=== PATIENT | female | born 1950 | race Caucasian/White ===

== ENCOUNTER 2016-08-14 14:34 | Inpatient (IN) | payer OTHER ==
[2016-08-14] VITALS (8 sets, daily range): BP systolic 175–212; BP diastolic 87–119; PULSE 71–94; RESP 17–20; TEMP 97.5–98.2; O2SAT 92–100
[~2016-08-14] VITALS: Ht 157.5 cm; Wt 88.7 kg
[2016-08-14 14:58] LABS: AUTOMATED NEUTROPHIL # 4.8 TH/MM3 (1.8-7.7); BASOPHIL # 0.1 TH/MM3 (0-0.2); BASOPHIL % 1.8 % (0.0-2.0); EOSINOPHIL # 0.2 TH/MM3 (0-0.4); EOSINOPHIL % 2.2 % (0.0-4.0); HEMATOCRIT 42.7 % (35.0-46.0); HEMO FLAGS DIFF FINAL; LYMPH % 23.1 % (9.0-44.0); LYMPHOCYTE # 1.7 TH/MM3 (1.0-4.8); MEAN CELL VOLUME 84.7 FL (80.0-100.0); MEAN CORPUSCULAR HEMOGLOBIN 27.5 PG (27.0-34.0); MEAN CORPUSCULAR HGB CONC 32.5 % (32.0-36.0); MONO % 6.8 % (0.0-8.0); NEUT % 66.1 % (16.0-70.0); PLATELET COUNT 176 TH/MM3 (150-450); RED BLOOD COUNT 5.04 MIL/MM3 (4.00-5.30); RED CELL DISTRIBUTION WIDTH 13.8 % (11.6-17.2); WHITE BLOOD COUNT 7.3 TH/MM3 (4.0-11.0)
[2016-08-14] MEDS ORDERED: LOSA25TA PO (15:05)
[2016-08-14] MEDS ORDERED: NAPR250T PO (15:05)
[2016-08-14] MEDS ORDERED: VERA40TA PO (15:05)
--- NOTE | 2016-08-14 15:05 | RADHPO ---
EXAM DATE/TIME: 08/14/2016 14:54 [facility] COMPARISON: No previous studies available for comparison. INDICATIONS : CVA, slurred speech MEDICAL HISTORY : None. SURGICAL HISTORY : None. ENCOUNTER: Initial ACUITY: 1 day PAIN SCORE: 0/10 LOCATION: Bilateral chest FINDINGS: Cardiomegaly. Clear lungs. Osseous structures are intact. CONCLUSION: No acute disease. Charles Salcido MD on August 14, 2016 at 15:03 Board Certified Radiologist. This report was verified electronically.
[2016-08-14 15:07] LABS: CHLORIDE 107 MEQ/L (98-107); POTASSIUM 3.8 MEQ/L (3.5-5.1); SODIUM (NA) 142 MEQ/L (136-145)
--- NOTE | 2016-08-14 15:07 | PD ---
HPI . Difficulty speaking and bilateral lower extremity weakness Chief Complaint: Neuro Symptoms/ Deficits Time Seen by Provider: 14:39 Travel History International Travel<30 days: No Contact w/Intl Traveler<30days: No History of Present Illness HPI Patient presents with a greater than 24-hour history of pressured speech and bilateral lower extremity weakness. She and her were on a car trip here from [place] when her symptoms began. They were traveling here for vacation. The states that her symptoms have waxed and waned over the course of the last 24 hours. They have never resolved. He states that she was speaking mainly in one word phrases and seemed to have difficulty getting her words out. He states that she seemed to be comprehending things well. He further states that he has had to physically assist her in getting around because of the weakness in her legs. She has not fallen. The patient denies any headache or blurred vision. She denies any vomiting. She denies chest pain or shortness of breath. She denies any previous similar history. She and her state that there has been no alcohol or drug use. PENDING SALE TO [facility] Social History Tobacco Use: No Allergies-Medications (Allergen,Severity, Reaction): Coded Allergies: No Known Allergies (Unverified , 08/14/16) Reported Meds & Prescriptions Reported Meds & Active Scripts Active Reported Naproxen 250 Mg Tab Unknown Dose PO DIRECTED Losartan (Losartan Potassium) 25 Mg Tab Unknown Dose PO HS Verapamil (Verapamil HCl) 40 Mg Tab Unknown Dose PO HS Review of Systems Except as stated in HPI: all other systems reviewed are Neg General / Constitutional: No: Fever, Chills Eyes: No: Diploplia, Blurred Vision HENT: No: Headaches, Vertigo Cardiovascular: No: Chest Pain or Discomfort Respiratory: No: Cough, Shortness of Breath Gastrointestinal: No: Nausea, Vomiting Musculoskeletal: No: Myalgias, Arthralgias Neurologic: Positive: Weakness, No: Syncope, Headache, Slurred Speech (speech is pressured and deliberate but not slurred) Psychiatric: Positive: Anxiety Physical Exam Narrative GENERAL: Bright and appearing woman who is in no acute distress. SKIN: Warm and dry. HEAD: Atraumatic. Normocephalic. EYES: Pupils equal and round. Extraocular movements are intact. ENT: No nasal bleeding or discharge. Mucous membranes pink and moist. NECK: Trachea midline. Neck is supple. CARDIOVASCULAR: Regular rate and rhythm. Heart sounds are normal. RESPIRATORY: No accessory muscle use. Lungs are clear with full air movement throughout. GASTROINTESTINAL: Abdomen soft, non-tender, nondistended. MUSCULOSKELETAL: No obvious deformities. No edema. NEUROLOGICAL: Awake and alert. She is able to hold her eyes shut, protrude her tongue, smile and blow her cheeks out with no weakness. She has full and equal strength in all muscle groups in her extremities including her legs. Babinski' s are downgoing. Her speech is a little slowed and deliberate. It is not slurred. PSYCHIATRIC: Anxious. Data Data Last Documented VS Vital Signs Date Time Temp Pulse Resp B/P Pulse Ox O2 Delivery O2 Flow Rate FiO2 08/14/16 14:53 98 Room Air 08/14/16 14:53 97.9 88 17 175/103 Orders Electrocardiogram (08/14/16 14:39) Prothrombin Time / Inr (Pt) (08/14/16 14:39) Act Partial Throm Time (Ptt) (08/14/16 14:39) Complete Blood Count With Diff (08/14/16 14:39) Comprehensive Metabolic Panel (08/14/16 14:39) Creatine Kinase (Cpk) (08/14/16 14:39) Troponin I (08/14/16 14:39) Ct Brain W/O Iv Contrast(Rout) (08/14/16 14:39) Chest, Single Ap (08/14/16 14:39) Ecg Monitoring (08/14/16 14:39) Iv Access Insert/Monitor (08/14/16 14:39) Oximetry (08/14/16 14:39) Urinary Catheter Management IAIN.Q8H (08/14/16 14:49) Urinalysis - C+S If Indicated (08/14/16 14:49) Drug Screen, Random Urine (08/14/16 14:49) Labs Laboratory Tests Test 08/14/16 14:50 White Blood Count 7.3 TH/MM3 Red Blood Count 5.04 MIL/MM3 Hemoglobin 13.9 GM/DL Hematocrit 42.7 % Mean Corpuscular Volume 84.7 FL Mean Corpuscular Hemoglobin 27.5 PG Mean Corpuscular Hemoglobin 32.5 % Concent Red Cell Distribution Width 13.8 % Platelet Count 176 TH/MM3 Mean Platelet Volume 9.6 FL Neutrophils (%) (Auto) 66.1 % Lymphocytes (%) (Auto) 23.1 % Monocytes (%) (Auto) 6.8 % Eosinophils (%) (Auto) 2.2 % Basophils (%) (Auto) 1.8 % Neutrophils # (Auto) 4.8 TH/MM3 Lymphocytes # (Auto) 1.7 TH/MM3 Monocytes # (Auto) 0.5 TH/MM3 Eosinophils # (Auto) 0.2 TH/MM3 Basophils # (Auto) 0.1 TH/MM3 CBC Comment DIFF FINAL Differential Comment Sodium Level 142 MEQ/L Potassium Level 3.8 MEQ/L Chloride Level 107 MEQ/L Carbon Dioxide Level 27.0 MEQ/L Anion Gap 8 MEQ/L Blood Urea Nitrogen 18 MG/DL Creatinine 0.85 MG/DL Estimat Glomerular Filtration 67 ML/MIN Rate Random Glucose 108 MG/DL Calcium Level 8.6 MG/DL Total Bilirubin 0.5 MG/DL Aspartate Amino Transf 14 U/L (AST/SGOT) Alanine Aminotransferase 29 U/L (ALT/SGPT) Total Protein 7.6 GM/DL Albumin 3.7 GM/DL [facility] Medical Decision Making Medical Screen Exam Complete: Yes Emergency Medical Condition: Yes Interpretation(s) EKG shows a sinus rhythm with a rate of 77. Inverted T waves in aVL. Otherwise , no acute ischemic changes. Differential Diagnosis Differential diagnosis of weakness includes but is not limited to infection, CVA , electrolyte disturbance, renal failure, hypoglycemia, UTI, ACS, acute blood loss Narrative Course Patient presents with a greater than 24-hour history bilaterally weak legs and difficulty speaking. Other than the speech difficulties, her neuro exam is intact. Last Impressions Chest X-Ray 08/14/16 4279 Signed Impressions: Service Date/Time: Sunday, August 14, 2016 14:54 - CONCLUSION: No acute disease. Charles Salcido MD Diagnosis Primary Impression: Dysphasia Additional Impression: Weakness of both legs Lillian Siegel MD Aug 14, 2016 15:07
[2016-08-14 15:11] LABS: APTT (PATIENT) 28.9 SEC (24.3-30.1); PROTHROMBIN TIME - PATIENT 11.1 SEC (9.8-11.6)
[2016-08-14 15:12] LABS: ANION GAP 8 MEQ/L (5-15); BLOOD UREA NITROGEN 18 MG/DL (7-18)
[2016-08-14 15:15] LABS: ALT (GPT) 29 U/L (10-53); AST (GOT) 14 U/L (15-37); GLOMERULAR FILTRATION RATE 67 ML/MIN (>89)
[2016-08-14 15:17] LABS: TOTAL BILIRUBIN ADULT 0.5 MG/DL (0.2-1.0)
[2016-08-14 15:18] LABS: ALKALINE PHOSPHATASE 92 U/L (45-117)
--- NOTE | 2016-08-14 15:32 | RADHPO ---
EXAM DATE/TIME: 08/14/2016 15:11 [facility] COMPARISON: No previous studies available for comparison. INDICATIONS : Slurred speech. RADIATION DOSE: 62.00 CTDIvol (mGy) MEDICAL HISTORY : Hypertension. SURGICAL HISTORY : None. ENCOUNTER: Initial ACUITY: 1 day PAIN SCALE: 2/10 LOCATION: cranial TECHNIQUE: Multiple contiguous axial images were obtained of the head. Using automated exposure control and adj ustment of the mA and/or kV according to patient size, radiation dose was kept as low as reasonably a chievable to obtain optimal diagnostic quality images. FINDINGS: There is mild atrophy. Remote left parietal infarct with encephalomalacia. No signs of acute infarct, hemorrhage, or mass. Osseous structures are intact. CONCLUSION: No acute disease. Charles Salcido MD on August 14, 2016 at 15:31 Board Certified Radiologist. This report was verified electronically.
[2016-08-14 15:35] LABS: CREATINE KINASE 58 U/L (26-192)
[2016-08-14 15:48] LABS: BLOOD, URINE NEG (NEG); GLUCOSE,URINE NEG (NEG); KETONE, URINE NEG (NEG); NITRITE,URINE NEG (NEG)
[2016-08-14 15:53] LABS: METHOD OF COLLECTION CATH; MUCUS URINE FEW /lpf (OCC); URINE COLOR YELLOW (YELLW/STRAW); WBC, URINE 0-2 /hpf (0-5)
[2016-08-14 15:54] LABS: COMMENT (UR) CATH-CULT NOT IND; CULTURE IF INDICATED CATH CULTURE NOT IND; SQUAMOUS EPITHELIAL CELL URINE 0-5 /hpf (0-5)
[2016-08-14] MEDS ORDERED: SODIUM CHLOR 0.9% 1000 ML INJ 1,000 ML IV SCH ×2 (15:54→16:00)
[2016-08-14 15:57] LABS: AMPHETAMINE, URINE NEG (NEG); BARBITURATES, URINE NEG (NEG)
[2016-08-14 15:58] LABS: COCAINE, URINE NEG (NEG)
[2016-08-14] MEDS ORDERED: ONDANSETRON HCL 4 MG/2 ML VIAL IVP PRN (16:00)
[2016-08-14] MEDS ORDERED: MAGNESIUM HYDROXIDE SUSP 30 ML CUP PO PRN (16:00)
[2016-08-14] MEDS ORDERED: DEXTROSE 50% IN WATER 50 ML VIAL(D50) IV PUSH PRN ×2 (16:00→19:30)
[2016-08-14] MEDS ORDERED: ACETAMINOPHEN 325 MG TAB PO PRN (16:00)
[2016-08-14] MEDS ORDERED: SODIUM CHLORIDE 0.9% FLUSH 5 ML FLUSH FLUSH PRN (16:00)
[2016-08-14] MEDS ORDERED: ASPIRIN 300 MG SUPP RECTAL ONE (16:00)
[2016-08-14] MEDS ORDERED: NALOXONE HCL 0.4 MG/ML AMP IV PRN (16:00)
[2016-08-14] MEDS ORDERED: INSULIN ASPART SUPPLEMENTAL SCALE SQ SCH (16:00)
[2016-08-14] MEDS ORDERED: ASPIRIN 325 MG TAB PO ONE (16:00)
[2016-08-14] MEDS ORDERED: GLUCAGON 1 MG/ML VIAL IM/SQ PRN ×2 (16:00→19:30)
[2016-08-14] MEDS ORDERED: SODIUM CHLORIDE 0.9% FLUSH 5 ML FLUSH IVF PRN ×2 (16:00→19:30)
--- NOTE | 2016-08-14 16:07 | PD ---
Physical Exam Date Seen by Provider: Aug 14, 2016 Time Seen by Provider: 16:03 Narrative This 66-year-old female says her speech has been abnormal since yesterday around noon. Her noted that she was having trouble talking last night. He was driving together from [place]. She is not aware of any history of stroke. She has a history of hypertension. He was seen initially by Dr. Siegel. EKG shows sinus rhythm with some ST depression in 1. A CT scan of the brain shows a remote left parietal infarct with encephalomalacia. On my assessment the patient is alert and oriented. Her speech is slow and deliberate. She is able to name items and is able to raise. Her says her speech is fluent normal. I am suspicious of a minimal right facial weakness the right arm seems slightly weaker than the left. Presentation is suspicious for acute stroke. Aspirin was ordered. The patient vomited after coughing during the nurses swallow evaluation sore aspirin be given a suppository. Data Data Last Documented VS Vital Signs Date Time Temp Pulse Resp B/P Pulse Ox O2 Delivery O2 Flow Rate FiO2 08/14/16 14:53 98 Room Air 08/14/16 14:53 97.9 88 17 175/103 Orders Electrocardiogram (08/14/16 14:39) Prothrombin Time / Inr (Pt) (08/14/16 14:39) Act Partial Throm Time (Ptt) (08/14/16 14:39) Complete Blood Count With Diff (08/14/16 14:39) Comprehensive Metabolic Panel (08/14/16 14:39) Creatine Kinase (Cpk) (08/14/16 14:39) Troponin I (08/14/16 14:39) Ct Brain W/O Iv Contrast(Rout) (08/14/16 14:39) Chest, Single Ap (08/14/16 14:39) Ecg Monitoring (08/14/16 14:39) Iv Access Insert/Monitor (08/14/16 14:39) Oximetry (08/14/16 14:39) Urinary Catheter Management IAIN.Q8H (08/14/16 14:49) Urinalysis - C+S If Indicated (08/14/16 14:49) Drug Screen, Random Urine (08/14/16 14:49) Aspirin (Aspirin) (08/14/16 16:00) Sodium Chlor 0.9% 1000 Ml Inj (Ns 1000 M (08/14/16 16:00) Admit Order (Ed Use Only) (08/14/16 15:54) Aspirin Supp (Aspirin Supp) (08/14/16 16:00) Admit To Inpatient (08/14/16 ) Nih Stroke Scale - Nihss .On admission and discharge (08/14/16 15:54) Neuro Checks Q2HX12,Q4H (08/14/16 15:54) Case Management Consult (08/14/16 ) Activity Bed Rest (08/14/16 15:54) Nursing Bedside Swallow Assess .ONCE (08/14/16 15:54) Scd Bilateral/Knee High IAIN.QSHIFT (08/14/16 15:54) Hemoglobin (Hgb) A1c (08/14/16 15:54) Lipid Profile (08/15/16 06:00) Mra Brain W/O Contrast (Cow) (08/14/16 ) Mri Brain W/O Contrast (08/14/16 ) ^ Hold Medication (08/14/16 15:54) Consult Neurology (08/14/16 ) Sodium Chloride 0.9% Flush (Ns Flush) (08/14/16 21:00) Sodium Chloride 0.9% Flush (Ns Flush) (08/14/16 16:00) Aspirin Chew (Aspirin Chew) (08/15/16 09:00) Atorvastatin (Lipitor) (08/14/16 21:00) Bedside Glucose IAIN.AC&HS (08/14/16 15:54) ^ Discontinue Insulin Orders (08/14/16 15:54) Insulin Aspart Supplemtl Scale (Novolog (08/14/16 16:00) Concrete Batching Plant Operator / Telemetry IAIN.Q8H (08/14/16 15:54) Consult Stoke Navigator (08/14/16 ) Scd Bilateral/Knee High IAIN.BID (08/14/16 15:54) Inpatient Certification (08/14/16 ) Vital Signs (Adult) Q4H (08/14/16 15:54) Diet Npo (08/14/16 Dinner) Sodium Chlor 0.9% 1000 Ml Inj (Ns 1000 M (08/14/16 15:54) Sodium Chloride 0.9% Flush (Ns Flush) (08/14/16 16:00) Sodium Chloride 0.9% Flush (Ns Flush) (08/14/16 21:00) Acetaminophen (Tylenol) (08/14/16 16:00) Ondansetron Inj (Zofran Inj) (08/14/16 16:00) Magnesium Hydroxide Liq (Milk Of Magnesi (08/14/16 16:00) Naloxone Inj (Narcan Inj) (08/14/16 16:00) Labs Laboratory Tests Test 08/14/16 08/14/16 14:50 15:35 White Blood Count 7.3 TH/MM3 Red Blood Count 5.04 MIL/MM3 Hemoglobin 13.9 GM/DL Hematocrit 42.7 % Mean Corpuscular Volume 84.7 FL Mean Corpuscular Hemoglobin 27.5 PG Mean Corpuscular Hemoglobin 32.5 % Concent Red Cell Distribution Width 13.8 % Platelet Count 176 TH/MM3 Mean Platelet Volume 9.6 FL Neutrophils (%) (Auto) 66.1 % Lymphocytes (%) (Auto) 23.1 % Monocytes (%) (Auto) 6.8 % Eosinophils (%) (Auto) 2.2 % Basophils (%) (Auto) 1.8 % Neutrophils # (Auto) 4.8 TH/MM3 Lymphocytes # (Auto) 1.7 TH/MM3 Monocytes # (Auto) 0.5 TH/MM3 Eosinophils # (Auto) 0.2 TH/MM3 Basophils # (Auto) 0.1 TH/MM3 CBC Comment DIFF FINAL Differential Comment Prothrombin Time 11.1 SEC Prothromb Time International 1.0 RATIO Ratio Activated Partial 28.9 SEC Thromboplast Time Sodium Level 142 MEQ/L Potassium Level 3.8 MEQ/L Chloride Level 107 MEQ/L Carbon Dioxide Level 27.0 MEQ/L Anion Gap 8 MEQ/L Blood Urea Nitrogen 18 MG/DL Creatinine 0.85 MG/DL Estimat Glomerular Filtration 67 ML/MIN Rate Random Glucose 108 MG/DL Calcium Level 8.6 MG/DL Total Bilirubin 0.5 MG/DL Aspartate Amino Transf 14 U/L (AST/SGOT) Alanine Aminotransferase 29 U/L (ALT/SGPT) Alkaline Phosphatase 92 U/L Total Creatine Kinase 58 U/L Troponin I LESS THAN 0.02 NG/ML Total Protein 7.6 GM/DL Albumin 3.7 GM/DL Urine Collection Type CATH Urine Color YELLOW Urine Turbidity CLEAR Urine pH 6.0 Urine Specific [place] 1.022 Urine Protein NEG mg/dL Urine Glucose (UA) NEG mg/dL Urine Ketones NEG mg/dL Urine Occult Blood NEG Urine Nitrite NEG Urine Bilirubin NEG Urine Leukocyte Esterase NEG Urine WBC 0-2 /hpf Urine Squamous Epithelial 0-5 /hpf Cells Urine Mucus FEW /lpf Microscopic Urinalysis Comment CATH-CULT NOT IND Urine Collection Time 15:35 Urine Opiates Screen NEG Urine Barbiturates Screen NEG Urine Amphetamines Screen NEG Urine Benzodiazepines Screen NEG Urine Cocaine Screen NEG Urine Cannabinoids Screen NEG [facility] Medical Record Reviewed: Yes Supervised Visit with JACK: No Differential Diagnosis Differential includes CVA, Narrative Course Presentation is consistent with acute stroke. Patient is not a candidate for TPA as her symptoms started over 24 hours ago Diagnosis Primary Impression: Acute CVA (cerebrovascular accident) Admitting Information Admitting Physician Requests: it Praveen Paris MD Aug 14, 2016 16:07
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
--- NOTE | 2016-08-14 19:48 | MB ---
cc: NEETA HAYES DATE OF CONSULTATION 08/14/2016 REASON FOR CONSULTATION Stroke. HISTORY OF PRESENT ILLNESS Ms. Sultana is a very nice 66-year-old woman in her usual state of good health until yesterday when she was driving from [place], suddenly developed slurred speech. She declined to go to the ER yesterday but came today because her symptoms have persisted. She had no aphasia, but her speech was definitely slurred. She had no focal deficits such as weakness or numbness. No double vision. She denies previous history of stroke. PAST MEDICAL HISTORY She has history of: 1. Hypertension. 2. Hysterectomy. 3. Cholecystectomy. 4. Knee replacement surgery. ALLERGIES None known. MEDICATIONS Are: 1. Aspirin 81 mg daily which was restarted, she states she was not on this at home. 2. Tylenol. 3. Zofran p.r.n. NEUROLOGIC EXAMINATION VITAL SIGNS: Blood pressure 199/95, pulse 84, respiratory rate is 17, temperature is 98 degrees. Higher cortical functions, she is alert and oriented. Speech moderately dysarthric but not aphasic. Cranial nerves are intact. On motor examination there is 5/5 strength of all groups in both upper and lower extremities. There is no drift. Fine motor skills within normal limits. Reflexes symmetric. Sensory exam intact. Cerebellar testing is normal. IMAGING CT of the brain, mild atrophy. There is an old left parietal stroke but no acute change present. LABORATORY DATA The white count is 7300. Hemoglobin 13.9, hematocrit 42.7%, platelet count 176,000. PT 11.1, INR 1.0, APTT 29. Sodium is 142, potassium 3.8, chloride 107, CO2 27. The BUN is 18, creatinine 0.85, GFR is 67, glucose 108, AST 14, ALT is 29, PT 11.1, INR 1.0, APTT 28.9. Toxicology screen is negative. EKG sinus rhythm. IMPRESSION Probable lacunar stroke. RECOMMENDATIONS Continue aspirin. Will check an MRI of the brain, carotid ultrasound. Echocardiogram, monitor cardiac telemetry to rule out atrial fibrillation. We will also check a lipid panel. MD TRACIE Garibay/CATHLEEN /7:30 PM /7:41 PM
[2016-08-14] MEDS: INSULIN ASPART SUPPLEMENTAL SCALE SQ SCH (21:00)
[2016-08-14] MEDS: ATORVASTATIN 10 MG TAB PO SCH (21:00)
[2016-08-14] MEDS ORDERED: SODIUM CHLORIDE 0.9% FLUSH 5 ML FLUSH IVF SCH (21:00)
[2016-08-14] MEDS ORDERED: SODIUM CHLORIDE 0.9% FLUSH 5 ML FLUSH FLUSH SCH (21:00)
[2016-08-14] MEDS: SODIUM CHLORIDE 0.9% FLUSH 5 ML FLUSH IVF SCH (23:25)
[2016-08-14] MEDS: SODIUM CHLOR 0.9% 1000 ML INJ 1,000 ML IV SCH (23:25)
[2016-08-14] MEDS: ENALAPRILAT 1.25 MG/ML VIAL IV PUSH PRN (23:25)
[2016-08-15] VITALS (8 sets, daily range): BP systolic 129–189; BP diastolic 71–98; PULSE 70–89; RESP 16–20; TEMP 96.8–98.1; O2SAT 6–99
[2016-08-15] MEDS: INSULIN ASPART SUPPLEMENTAL SCALE SQ SCH ×4 (05:48→20:28)
[2016-08-15] MEDS: SODIUM CHLORIDE 0.9% FLUSH 5 ML FLUSH IVF SCH ×2 (08:29→20:28)
[2016-08-15] MEDS ORDERED: ASPIRIN 81 MG CHEW TAB PO SCH (09:00)
[2016-08-15 09:11] LABS: HEMOGLOBIN A1a 0.7 %; HEMOGLOBIN A1b 1.5 %; HEMOGLOBIN Ao 87.3 %; HEMOGLOBIN LA1C 1.8 %; HEMOGLOBIN P3 3.5 %
[2016-08-15] MEDS: LOSARTAN 50 MG TAB PO SCH (09:15)
--- NOTE | 2016-08-15 10:02 | RADHPO ---
EXAM DATE/TIME: 08/15/2016 08:07 [facility] COMPARISON: No previous studies available for comparison. INDICATIONS : Cerebrovascular accident. MEDICAL HISTORY : Hypercholesterolemia. Hypertension. Arthritis. CVA. SURGICAL HISTORY : Cholecystectomy. Hysterectomy. Bilateral knee replacements. ENCOUNTER: Initial ACUITY: 3 days PAIN SCORE: 0/10 LOCATION: Bilateral neck PEAK SYSTOLIC VELOCITIES (cm/sec): ICA/CCA RATIO: Right: 1.3 Left: 1.0 ICA: Right: 66 Left: 68 CCA: Right: 50 Left: 72 ECA: Right: 71 Left: 97 VERTEBRAL: Right: 48 antegrade Left: 34 antegrade Elevated flow velocities and ICA/CCA ratios have been found to correlate with increased degrees of vessel stenosis, calculated as percentage of diameter relative to a normal segment of distal ICA/CCA FINDINGS: RIGHT CAROTID: No significant stenosis is visualized. There is mild calcified plaque in the carotid bulb. LEFT CAROTID: No significant stenosis is visualized. There is noncalcified plaque in the carotid bulb. VERTEBRAL ARTERIES: Antegrade flow is seen in both vertebral arteries. MISCELLANEOUS: None. CONCLUSION: 1. Mild calcified plaque in the carotid bulbs bilaterally. However, no significant stenosis is presen t within either internal carotid artery. 2. There is antegrade flow within both vertebral arteries. Albert Zepeda MD on August 15, 2016 at 9:59 Board Certified Radiologist. This report was verified electronically.
--- NOTE | 2016-08-15 10:10 | EKG ---
Date Performed: 08/14/2016 Time Performed: 14:38:34 PTAGE: 66 years EKG: Sinus rhythm Lateral ST-T changes are nonspecific Borderline ECG NO PREVIOUS TRACING DOCTOR: Darwin Shelby Interpretating Date/Time 08/15/2016 10:04:37
--- NOTE | 2016-08-15 10:39 | HHI.PR ---
Subjective Remarks Patient continues to have aphasia without change. No new neurologic symptoms. Objective Vitals Vital Signs Date Time Temp Pulse Resp B/P Pulse Ox O2 Delivery O2 Flow Rate FiO2 08/15/16 08:00 96.9 73 18 169/75 99 08/15/16 04:00 96.8 81 19 186/97 97 08/14/16 23:19 97.5 94 18 212/118 97 202/108 08/14/16 22:42 98 21 08/14/16 21:00 83 08/14/16 20:00 97.8 86 20 212/112 99 196/104 08/14/16 18:18 98.2 84 17 199/95 92 08/14/16 17:49 81 17 207/119 100 08/14/16 16:33 71 17 185/87 100 Room Air 08/14/16 14:53 98 Room Air 08/14/16 14:53 97.9 88 17 175/103 98 Room Air 08/14/16 14:53 Room Air I/O 08/14/16 08/14/16 08/14/16 08/15/16 08/15/16 08/15/16 07:00 15:00 23:00 07:00 15:00 23:00 Intake Total 1600 ml Output Total 900 ml Balance 700 ml Intake IV Total 1600 ml Output Urine Total 900 ml # Bowel Movements 1 Result Diagram: 08/14/16 1450 08/14/16 1450 Objective Remarks GENERAL: This is a well-nourished, well-developed patient, in no apparent distress. SKIN: No rashes, ecchymoses or lesions. Cool and dry. HEAD: Atraumatic. Normocephalic. EYES: Pupils equal round and reactive. Extraocular motions intact. No scleral icterus. No injection or drainage. NECK: Trachea midline. No JVD or lymphadenopathy. CARDIOVASCULAR: Regular rate and rhythm without murmurs, gallops, or rubs. RESPIRATORY: Clear to auscultation. Breath sounds equal bilaterally. No wheezes , rales, or rhonchi. GASTROINTESTINAL: Abdomen soft, non-tender, nondistended. No hepato-splenomegaly , or palpable masses. No guarding. MUSCULOSKELETAL: Extremities without clubbing, cyanosis, or edema. No joint tenderness, effusion, or edema noted. NEUROLOGICAL: Awake and alert. Cranial nerves II through XII intact. Motor and sensory grossly within normal limits. Five out of 5 muscle strength in all muscle groups. aphasia with mildly slurred speech. A/P Problem List: (1) Dysphasia ICD Code: R47.02 Status: Acute (2) Acute CVA (cerebrovascular accident) ICD Code: I63.9 Status: Acute (3) Weakness of both legs ICD Code: R29.898 Status: Acute Assessment and Plan -Aphasia beginning the day prior to admission, associated with bilateral weakness of the lower extremities after a long car ride from [place]. 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 This likely represents a small acute CVA. Patient is undergoing CVA workup to include MRI MRA brain, Doppler carotid ultrasound, 2-D echocardiogram, neurology evaluation. ST/OT/PT. continue aspirin daily. Continue her on telemetry. -Hypertension. We'll let blood pressure run permissively high for now. -DVT prophylaxis with SCDs. Destini Mayen MD Aug 15, 2016 10:39
[2016-08-15] MEDS: SODIUM CHLOR 0.9% 1000 ML INJ 1,000 ML IV SCH (10:44)
--- NOTE | 2016-08-15 13:30 | RADHPO ---
EXAM DATE/TIME: 08/15/2016 12:03 [facility] COMPARISON: MRI BRAIN W/O CONTRAST, August 15, 2016, 12:03. INDICATIONS : Slurred speech. MEDICAL HISTORY : Hypertension. SURGICAL HISTORY : Hysterectomy. Cholecystectomy. Bilateral knee replacements. ENCOUNTER: Initial ACUITY: 2 day PAIN SCORE: 0/10 LOCATION: head Please note a normal MRA of the brain does not entirely exclude the possibility of a small aneurysm, nor the possibility of distal intracranial vessel disease. TECHNIQUE: 3D time of flight MRA was performed. Source images, multiplanar STS MIP, and 3D volume MIP reconstru ctions were reviewed. FINDINGS: There is excellent visualization of the major intracranial arteries out to the second-order branch ve ssels. Vwre-rh-zqpauewe narrowing is noted in carotid siphons. There is moderate stenosis seen on last milli nous segment of the ICA. A mild luminal irregularity with focal [id number]-wtchamzx stenotic lesions are identified in both the a nterior and posterior circulation. No significant lesions are identified in the right A1 segment of t he anterior cerebral artery and in the P2 segments of the posterior cerebral arteries. There is no evidence of branch occlusion. There is no evidence of focal aneurysm. The right posterior cerebral artery originates from the anterior circulation. CONCLUSION: Luminal irregularity associated with mild to moderate stenotic lesions most characteristic of atheros clerotic vascular disease or other form of vasculopathy such as arteritis. No evidence of aneurysm. origin right posterior cerebral artery. Vasu Staley MD on August 15, 2016 at 13:04 Board Certified Radiologist. This report was verified electronically.
--- NOTE | 2016-08-15 13:34 | RADHPO ---
EXAM DATE/TIME: 08/15/2016 12:03 [facility] COMPARISON: No previous studies available for comparison. INDICATIONS : Slurred speech. MEDICAL HISTORY : Hypertension. SURGICAL HISTORY : Cholecystectomy. Hysterectomy. Bilateral knee replacements. ENCOUNTER: Initial ACUITY: 2 day PAIN SCORE: 0/10 LOCATION: head TECHNIQUE: Multiplanar, multisequence MRI of the brain was performed without contrast. FINDINGS: In the left side of the brainstem at the level of the midbrain and superior cerebellar peduncle there is a focal irregular marginated area of restricted diffusion without evidence of susceptibility. The re is no significant mass effect. No other focal areas of restricted diffusion are noted. Focal encephalomalacia with underlying gliosis is identified in the left parietal lobe. Mild to moderate cerebral white matter disease with periventricular T2 hyperintensity is noted. There are no fracture abnormalities. CONCLUSION: Acute left-sided brainstem infarct at the level of the midbrain. Old left parietal lobe infarct. No evidence of acute hemorrhage, significant mass effect or edema. Mild/moderate chronic white matter disease. Vasu Staley MD on August 15, 2016 at 13:29 Board Certified Radiologist. This report was verified electronically.
--- NOTE | 2016-08-15 14:58 | EC ---
Study Study Date:08/15/2016 STUDY CONCLUSIONS SUMMARY - Left ventricle: The cavity size was normal. Wall thickness was normal. Systolic function was normal. The estimated ejection fraction was 65%, in the range of 60% to 65%. Possible hypokinesis of the distal anteroseptal myocardium. - Pulmonary arteries: PA peak pressure: 31mm Hg (S). If LV function is below 40, please consider prescribing an ACEI or ARB or document rationale for non-use. PROCEDURE DATA STUDY STATUS: Elective. Procedure: Transthoracic echocardiography. Image quality was good. Scanning was performed from the parasternal, apical, and subcostal acoustic windows. Study completion: The patient tolerated the procedure well. Transthoracic echocardiography. M-mode, complete 2D, complete spectral Doppler, and color Doppler. Patient status: Inpatient. CARDIAC ANATOMY LEFT VENTRICLE: The cavity size was normal. Wall thickness was normal. Systolic function was normal. The estimated ejection fraction was 65%, in the range of 60% to 65%. Regional wall motion abnormalities: Possible hypokinesis of the distal anteroseptal myocardium. AORTIC VALVE: Trileaflet; normal thickness leaflets. Doppler: Transvalvular velocity was within the normal range. There was no stenosis. No regurgitation. AORTA: Aortic root: The aortic root was normal in size. MITRAL VALVE: Structurally normal valve. Doppler: Transvalvular velocity was within the normal range. There was no evidence for stenosis. Trace regurgitation. LEFT ATRIUM: The atrium was normal in size. RIGHT VENTRICLE: The cavity size was normal. Wall thickness was normal. PULMONIC VALVE: Doppler: Transvalvular velocity was within the normal range. There was no evidence for stenosis. No regurgitation. TRICUSPID VALVE: Structurally normal valve. Doppler: Transvalvular velocity was within the normal range. Trace regurgitation. PULMONARY ARTERY: The main pulmonary artery was normal-sized. Systolic pressure was within the normal range. RIGHT ATRIUM: The atrium was normal in size. PERICARDIUM: There was no pericardial effusion. SYSTEMIC VEINS: Inferior vena cava: Not visualized. BASIC MEASUREMENTS ADULT Normal Left ventricle LV internal dimension, ED, chordal level, *39.9 mm 43-52 PLAX LV internal dimension, ES, chordal level, 28.4 mm 23-38 PLAX Fractional shortening, chordal level, PLAX *29 % >29 LV posterior wall thickness, ED 11.6 mm IVS/LVPW ratio, ED 1.02 <1.3 Ventricular septum Septal thickness, ED 11.8 mm Aortic valve Leaflet separation 26 mm 15-26 Right ventricle RV internal dimension, ED, PLAX 27.1 mm 19-38 BASIC MEASUREMENTS ADULT Normal Aortic valve Leaflet separation 26 mm 15-26 Aorta Root diameter, ED 34 mm 20-37 Left atrium Anterior-posterior dimension, ES 37 mm 19-40 LA/aortic root ratio 1.09 DOPPLER MEASUREMENTS ADULT Normal Main pulmonary artery Pressure, S *31 mm Hg =30 Mitral valve Peak E-wave velocity 61.7 cm/s Peak A-wave velocity 64.2 cm/s Peak E/A ratio 1 Tricuspid valve Regurgitant peak velocity 221 cm/s Peak RV-RA gradient, S 20 mm Hg Maximal regurgitant velocity 221 cm/s Systemic veins Estimated CVP 10 mm Hg Right ventricle RV pressure, S *31 mm Hg <30 LEGEND: Mean values are shown as u=mean value. Asterisk (*) hagen values outside specified normal range. Prepared and signed by Artur Hyman [id number]
[2016-08-15] MEDS: cloNIDine HCL 0.1 MG TAB PO PRN (16:49)
--- NOTE | 2016-08-15 19:41 | HHI.PR ---
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 Active Medications Current Medications Medications (Trade) Dose Ordered Sig/Maciel Route Start Time Stop Time Status Last Admin (Aspirin Chew) 81 mg DAILY PO 08/15/16 09:00 (Lipitor) 10 mg HS PO 08/14/16 21:00 (Tylenol) 650 mg Q4H PRN PO 08/14/16 16:00 (Zofran Inj) 4 mg Q6H PRN IVP 08/14/16 16:00 (Milk Of Magnesia Liq) 30 ml Q12H PRN PO 08/14/16 16:00 (Narcan Inj) 0.4 mg UNSCH PRN IV 08/14/16 16:00 (NS Flush) 2 ml BID IVF 08/14/16 21:00 08/15/16 08:29 IV Flush 2 ml 2 ml UNSCH PRN IVF 08/14/16 19:30 (NS 1000 ml Inj) 1,000 ml @ 70 mls/hr [id number] IV 08/14/16 19:30 08/15/16 10:44 (D50w (Vial) Inj) 25 ml UNSCH PRN IV PUSH 08/14/16 19:30 (Glucagon Inj) 1 mg UNSCH PRN IM/SQ 08/14/16 19:30 (Vasotec Inj) 1.25 mg Q6H PRN IV PUSH 08/14/16 22:45 08/14/16 23:25 (Cozaar) 50 mg DAILY PO 08/15/16 09:00 08/15/16 09:15 (Isoptin Sr) 120 mg DAILY PO 08/16/16 09:00 (Catapres) 0.1 mg Q6H PRN PO 08/15/16 09:00 08/15/16 16:49 Allergies Allergies Coded Allergies No Known Allergies (Unverified08/14/16) Exam I&O / VS 08/14/16 08/14/16 08/15/16 15:00 23:00 07:00 Intake Total 1600 ml Output Total 900 ml Balance 700 ml Intake IV Total 1600 ml Output Urine Total 900 ml Vital Signs Date Time Temp Pulse Resp B/P Pulse Ox O2 Delivery O2 Flow Rate FiO2 08/15/16 19:16 96 08/15/16 16:00 97.4 84 18 189/97 97 08/15/16 12:00 97.7 79 18 187/98 98 08/15/16 12:00 97.7 70 18 6 08/15/16 08:00 96.9 73 18 169/75 99 08/15/16 08:00 97 21 08/15/16 07:53 88 08/15/16 04:00 96.8 81 19 186/97 97 08/14/16 23:19 97.5 94 18 212/118 97 202/108 08/14/16 22:42 98 21 08/14/16 21:00 83 08/14/16 20:00 97.8 86 20 212/112 99 196/104 Exam Comments alert, speech dysarthric CN 2-12 normal motor --5/5 BUE and BLE Objective Radiology Results mri brain-small lacunar mesencephalic cva MRA brain with atherosclerosis carotid us--no significant stenosis Micro and Labs Laboratory Tests Test 08/15/16 06:35 Triglycerides Level 97 Cholesterol Level 170 LDL Cholesterol 111 HDL Cholesterol 40.0 Cholesterol/HDL Ratio 4.25 Diagnostic Tests echocardiogram--EF 60-65 % no thrombus Luis Fowler PhD MD Aug 15, 2016 19:41
[2016-08-15] MEDS: ATORVASTATIN 10 MG TAB PO SCH (20:44)
[2016-08-15] MEDS ORDERED: ASPIRIN 325 MG TAB PO ONE (21:00)
[2016-08-16] VITALS (7 sets, daily range): BP systolic 143–203; BP diastolic 76–107; PULSE 54–98; RESP 18–20; TEMP 96.6–98; O2SAT 95–99
[2016-08-16] MEDS: cloNIDine HCL 0.1 MG TAB PO PRN (00:28)
[2016-08-16] MEDS: SODIUM CHLOR 0.9% 1000 ML INJ 1,000 ML IV SCH (00:30)
[2016-08-16] MEDS: INSULIN ASPART SUPPLEMENTAL SCALE SQ SCH ×3 (05:55→16:00)
[2016-08-16] MEDS: SODIUM CHLORIDE 0.9% FLUSH 5 ML FLUSH IVF SCH ×2 (08:14→20:33)
[2016-08-16] MEDS: VERAPAMIL HCL 120 MG SUSTAINED RELEASE TAB PO SCH (08:15)
[2016-08-16] MEDS: LOSARTAN 50 MG TAB PO SCH ×2 (08:15→20:32)
[2016-08-16] MEDS: ASPIRIN 325 MG TAB PO SCH (08:16)
--- NOTE | 2016-08-16 13:03 | HHI.PR ---
Subjective Remarks No new neurologic symptoms. Still with slurred speech. Objective Vitals Vital Signs Date Time Temp Pulse Resp B/P Pulse Ox O2 Delivery O2 Flow Rate FiO2 08/16/16 08:00 97.9 66 18 201/88 98 08/16/16 04:00 97.4 62 20 158/89 97 08/16/16 00:00 97.8 84 20 196/100 98 08/15/16 20:00 98.1 89 20 178/82 98 08/15/16 19:50 85 08/15/16 19:16 96 08/15/16 16:00 97.4 84 18 189/97 97 I/O 08/15/16 08/15/16 08/15/16 08/16/16 08/16/16 08/16/16 07:00 15:00 23:00 07:00 15:00 23:00 Intake Total 1600 ml 603 ml 531 ml 60 ml Output Total 900 ml 950 ml 200 ml Balance 700 ml -950 ml 403 ml 531 ml 60 ml Intake Oral 240 ml 60 ml IV Total 1600 ml 363 ml 531 ml Output Urine Total 900 ml 950 ml 200 ml # Voids 2 2 # Bowel Movements 1 0 0 Result Diagram: 08/14/16 1450 08/14/16 1450 Objective Remarks GENERAL: This is a well-nourished, well-developed patient, in no apparent distress. SKIN: No rashes, ecchymoses or lesions. Cool and dry. HEAD: Atraumatic. Normocephalic. EYES: Pupils equal round and reactive. Extraocular motions intact. No scleral icterus. No injection or drainage. NECK: Trachea midline. No JVD or lymphadenopathy. CARDIOVASCULAR: Regular rate and rhythm without murmurs, gallops, or rubs. RESPIRATORY: Clear to auscultation. Breath sounds equal bilaterally. No wheezes , rales, or rhonchi. GASTROINTESTINAL: Abdomen soft, non-tender, nondistended. No hepato-splenomegaly , or palpable masses. No guarding. MUSCULOSKELETAL: Extremities without clubbing, cyanosis, or edema. No joint tenderness, effusion, or edema noted. NEUROLOGICAL: Awake and alert. Cranial nerves II through XII intact. Motor and sensory grossly within normal limits. 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 But still 5 out of 5. aphasia with mildly slurred speech. A/P Problem List: (1) Dysphasia ICD Code: R47.02 Status: Acute (2) Acute CVA (cerebrovascular accident) ICD Code: I63.9 Status: Acute (3) Weakness of both legs ICD Code: R29.898 Status: Acute Assessment and Plan -Aphasia beginning the day prior to admission, associated with bilateral weakness of the lower extremities after a long car ride from [place]. Brain MRI showing an acute left-sided brainstem infarct. 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 On physical exam she has some very mild diminished braille typist strength of the right hand as well as notable aphasia. Doppler carotid ultrasound negative for stenosis. MRA brain showing atherosclerosis. Patient is in normal sinus rhythm on telemetry. Discussed her case with Dr. Fowler neurology today. He recommends full- strength aspirin and statin his LDL is mildly elevated. 2-D echocardiogram shows preserved ejection fraction, no LV thrombosis, possible hypokinesis of the distal anterior septal myocardium. She is ambulating well with physical therapy. .-Hypertension. Blood pressure is elevated. Continue verapamil and Cozaar. Clonidine when necessary. I will increase her Cozaar to 100 mg a day. -DVT prophylaxis with SCDs. Discharge Planning Discharge home tomorrow if blood pressure improved. Destini Mayen MD Aug 16, 2016 13:03
[2016-08-16] MEDS: ENALAPRILAT 1.25 MG/ML VIAL IV PUSH PRN (16:49)
[2016-08-16] MEDS: ATORVASTATIN 10 MG TAB PO SCH (20:32)
[2016-08-17] VITALS: BP 179/78; PULSE 69; RESP 18; TEMP 96.7; O2SAT 99
[2016-08-17] MEDS ORDERED: diphenhydrAMINE HCL 25 MG CAP PO ONE
[2016-08-17 04:00] VITALS: BP 192/82; PULSE 67; RESP 18; TEMP 97; O2SAT 97
[2016-08-17] MEDS: cloNIDine HCL 0.1 MG TAB PO PRN (05:56)
[2016-08-17 08:00] VITALS: BP 138/88; PULSE 91; RESP 18; TEMP 97.8; O2SAT 96
[2016-08-17] MEDS: SODIUM CHLORIDE 0.9% FLUSH 5 ML FLUSH IVF SCH (09:00)
[2016-08-17] MEDS: ASPIRIN 325 MG TAB PO SCH (09:06)
[2016-08-17] MEDS: LOSARTAN 50 MG TAB PO SCH (09:06)
[2016-08-17] MEDS: VERAPAMIL HCL 120 MG SUSTAINED RELEASE TAB PO SCH (09:06)
[2016-08-17] MEDS ORDERED: ASPI325T PO (09:15)
[2016-08-17] MEDS ORDERED: VERA1TAB9 PO (09:15)
[2016-08-17] MEDS ORDERED: LIPI10TA PO (09:15)
[2016-08-17] MEDS ORDERED: COZA50TA PO (09:15)
[2016-08-17] MEDS ORDERED: CLON.1 PO (09:58)
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
[2016-08-18 15:53] LABS: MYELOPEROXIDASE LESS THAN 1.0 AI (<1.0); PROTEINASE-3 LESS THAN 1.0 AI (<1.0)
== END 2016-08-17 13:35 | disposition home or self-care (01) | DRG 66 ==
LOC: PHED 14:34 → PHEDA 16:00 → PH3A 17:50
PROVIDERS: ADMIT Family Medicine; ATTEND Family Medicine
DX: I63.9 Cerebral infarction, unspecified (principal); I10 Essential (primary) hypertension; R29.898 Other symptoms and signs involving the musculoskeletal system; R47.02 Dysphasia; Z86.73 Personal history of transient ischemic attack (TIA), and cerebral infarction without residual deficits; Z82.3 Family history of stroke; Z96.653 Presence of artificial knee joint, bilateral
CPT/HCPCS: 51702; 70450; 70544; 70551; 71010; 80053; 80061; 80307; 81001; 82550; 82595; 82948; 83036; 84484; 85025; 85610; 85652; 85730; 86021; 86038; 86140; 86160; 93005; 93306; 93880; J7030